=== PATIENT | female | born 1965 | race Caucasian/White ===

== ENCOUNTER → 2023-06-04 08:25 | Outpatient (CLI) | payer BC, SELFPAY ==
[2023-06-04 14:02] LABS: Microscopic, Urine URINE MICROSCOPIC (MICROSCOPIC)
[2023-06-04 14:12] LABS: Appearance,Urine CLEAR (Clear); Bilirubin,Urine Negative (Negative); Blood, Urine Negative (Negative); Color,Urine YELLOW (Yellow); Glucose,Urine (UA) Negative (Negative); Ketones,Urine Negative (Negative); Leukocyte Esterase,Urine Negative (Negative); Nitrate,Urine Negative (Negative); PH,Urine 5.5 (5.0-8.5); Protein,Urine Negative (Negative); Specific Gravity, Urine >= 1.030 (1.005-1.030); Urobilinogen,Urine 0.2 EU/dl (0.2)
[2023-06-04 14:28] LABS: Bacteria,Urine Trace /lpf; RBC,Urine Occasional #/hpf (0-3)
[2023-06-04 14:34] LABS: Hemoglobin A1C 5.5 % (4.0-6.0)
[2023-06-04 15:16] LABS: Alanine Aminotransferase 26 U/L (12-78); Albumin Level 4.5 g/dl (3.5-5.0); Albumin/Globulin Ratio 1.6 (1.1-1.8); Alkaline Phosphatase 45 U/L (38-126); Anion Gap 15.3 mEq/L (5-15); Aspartate Amino Transferase 39 U/L (14-36); Bilirubin,Total 0.3 mg/dl (0.2-1.3); Blood Urea Nitrogen 30 mg/dl (7-17); Calcium 9.8 mg/dl (8.4-10.2); Carbon Dioxide 26 mmol/L (22.0-30.0); Chloride 103 mmol/L (98-107); Chol/HDL Ratio 2.3 (1-3.5); Cholesterol 187 mg/dl (140-200); Estimated Glomerular Filt Rate 74 ml/min (>60); GFR (African American) 89 ML/MIN (>60); Globulin 2.9 g/dL (1.3-3.2); Glucose 78 mg/dl (74-100); HDL Cholesterol 80 mg/dl (40-60); Potassium 5.3 mmoL/L (3.5-5.1); Sodium 139 mmol/L (136-145); Total Protein,Serum 7.4 g/dl (6.3-8.2); Triglycerides 86 mg/dl (30-150); VLDL Cholesterol 17 mg/dL (0-40)
[2023-06-04 15:27] LABS: Direct LDL Cholesterol 82.53 mg/dL (100-129)
[2023-06-04 15:50] LABS: Thyroid Stimulating Hormone 2.45 uIU/mL (0.465-4.68)
== END ==
PROVIDERS: PCP Nurse Practitioner Family; Visit Provider Nurse Practitioner Family
DX: R82.90 Unspecified abnormal findings in urine (principal); R35.0 Frequency of micturition; E78.5 Hyperlipidemia, unspecified; I10 Essential (primary) hypertension
CPT/HCPCS: 80053; 80061; 81001; 83036; 84443; 87086

== ENCOUNTER → 2023-07-12 10:01 | Outpatient (CLI) | payer BC, SELFPAY | PROVIDERS: PCP Nurse Practitioner Family; Visit Provider Nurse Practitioner Family | DX: R30.0 Dysuria (principal); B96.29 Other Escherichia coli [E. coli] as the cause of diseases classified elsewhere | CPT/HCPCS: 87086 ==

== ENCOUNTER 2023-11-24 14:40 | Outpatient (CLI) | payer BC, SELFPAY ==
[2023-11-24 14:44] LABS: Chloride 103 mmol/L (98-107); Sodium 138 mmol/L (136-145)
[2023-11-24 14:46] LABS: Alanine Aminotransferase 25 U/L (12-78); Aspartate Amino Transferase 37 U/L (14-36); Blood Urea Nitrogen 32 mg/dl (7-17); Estimated Glomerular Filt Rate 57 ml/min (>60); GFR (African American) 69 ML/MIN (>60)
[2023-11-24 14:47] LABS: Albumin Level 4.3 g/dl (3.5-5.0); Albumin/Globulin Ratio 1.6 (1.1-1.8); Alkaline Phosphatase 47 U/L (38-126); Bilirubin,Total 0.5 mg/dl (0.2-1.3); Calcium 9.9 mg/dl (8.4-10.2); Carbon Dioxide 28 mmol/L (22.0-30.0); Globulin 2.7 g/dL (1.3-3.2); Glucose 72 mg/dl (74-100)
[2023-11-24 16:30] LABS: Hemoglobin A1C 5.7 % (4.0-6.0)
== END 2023-11-24 23:59 | disposition home or self-care (01) ==
LOC: LAB.DROPOF 14:40
PROVIDERS: PCP Nurse Practitioner Family; Visit Provider Nurse Practitioner Family
DX: R10.2 Pelvic and perineal pain (principal); I10 Essential (primary) hypertension; E78.5 Hyperlipidemia, unspecified; R82.90 Unspecified abnormal findings in urine; Z13.1 Encounter for screening for diabetes mellitus
CPT/HCPCS: 80053; 83036; 87086

== ENCOUNTER 2023-11-25 06:56 | Outpatient (CLI) | payer BC, SELFPAY ==
[2023-11-25 17:21] LABS: Chol/HDL Ratio 3.3 (1-3.5); Cholesterol 202 mg/dl (140-200); HDL Cholesterol 62 mg/dl (40-60); Triglycerides 117 mg/dl (30-150); VLDL Cholesterol 23 mg/dL (0-40)
[2023-11-25 17:32] LABS: Direct LDL Cholesterol 88.32 mg/dL (100-129)
== END 2023-11-25 23:59 ==
PROVIDERS: PCP Nurse Practitioner Family; Visit Provider Nurse Practitioner Family
DX: E78.5 Hyperlipidemia, unspecified (principal)
CPT/HCPCS: 80061

== ENCOUNTER 2024-05-24 14:10 | Outpatient (CLI) | payer BC, SELFPAY ==
[2024-05-24 13:05] LABS: Albumin Level 4.9 g/dl (3.5-5.0); Chloride 100 mmol/L (98-107)
[2024-05-24 13:06] LABS: Potassium 5.3 mmoL/L (3.5-5.1); Sodium 137 mmol/L (136-145)
[2024-05-24 13:08] LABS: Alanine Aminotransferase 28 U/L (12-78); Albumin/Globulin Ratio 1.8 (1.1-1.8); Anion Gap 15.3 mEq/L (5-15); Aspartate Amino Transferase 42 U/L (14-36); Blood Urea Nitrogen 31 mg/dl (7-17); Carbon Dioxide 27 mmol/L (22.0-30.0); Estimated Glomerular Filt Rate 51 ml/min (>60); GFR (African American) 62 ML/MIN (>60); Globulin 2.8 g/dL (1.3-3.2); Total Protein,Serum 7.7 g/dl (6.3-8.2)
[2024-05-24 13:09] LABS: Alkaline Phosphatase 41 U/L (38-126); Bilirubin,Total 0.5 mg/dl (0.2-1.3); Calcium 10.3 mg/dl (8.4-10.2); Chol/HDL Ratio 2.6 (1-3.5); Cholesterol 213 mg/dl (140-200); Glucose 84 mg/dl (74-100); HDL Cholesterol 81 mg/dl (40-60); Magnesium 2.2 mg/dl (1.6-2.3); Triglycerides 113 mg/dl (30-150); VLDL Cholesterol 23 mg/dL (0-40)
[2024-05-24 13:18] LABS: Hemoglobin A1C 5.5 % (4.0-6.0)
[2024-05-24 13:20] LABS: Direct LDL Cholesterol 82.03 mg/dL (100-129)
== END 2024-05-24 23:59 | disposition home or self-care (01) ==
LOC: LAB.DROPOF 14:10
PROVIDERS: PCP Nurse Practitioner Family; Visit Provider Nurse Practitioner Family
DX: E78.2 Mixed hyperlipidemia (principal); I10 Essential (primary) hypertension; Z13.1 Encounter for screening for diabetes mellitus
CPT/HCPCS: 80053; 80061; 83036; 83735; 84443

== ENCOUNTER 2024-12-11 14:43 | Outpatient (CLI) | payer BC, SELFPAY ==
[2024-12-11 13:07] LABS: Microscopic, Urine URINE MICROSCOPIC (MICROSCOPIC)
[2024-12-11 13:32] LABS: Appearance,Urine CLEAR (Clear); Bilirubin,Urine Negative (Negative); Blood, Urine Negative (Negative); Color,Urine YELLOW (Yellow); Glucose,Urine (UA) Negative (Negative); Ketones,Urine Negative (Negative); Leukocyte Esterase,Urine Negative (Negative); Nitrate,Urine Negative (Negative); PH,Urine 5.5 (5.0-8.5); Protein,Urine Negative (Negative); Specific Gravity, Urine 1.025 (1.005-1.030); Urobilinogen,Urine 0.2 EU/dl (0.2)
[2024-12-11 13:51] LABS: Creatinine,Urine Random 211 mg/dL (Not Estab.); Microalbumin/Creatinine Ratio 5.4
[2024-12-11 13:52] LABS: Albumin Level 4.4 g/dl (3.5-5.0); Chloride 105 mmol/L (98-107); Sodium 138 mmol/L (136-145)
[2024-12-11 13:53] LABS: Potassium 5.5 mmoL/L (3.5-5.1)
[2024-12-11 13:55] LABS: Alanine Aminotransferase 28 U/L (12-78); Albumin/Globulin Ratio 1.6 (1.1-1.8); Anion Gap 13.5 mEq/L (5-15); Aspartate Amino Transferase 38 U/L (14-36); Blood Urea Nitrogen 39 mg/dl (7-17); Carbon Dioxide 25 mmol/L (22.0-30.0); Estimated Glomerular Filt Rate 42 ml/min (>60); GFR (African American) 51 ML/MIN (>60); Globulin 2.8 g/dL (1.3-3.2); Total Protein,Serum 7.2 g/dl (6.3-8.2)
[2024-12-11 13:56] LABS: Alkaline Phosphatase 47 U/L (38-126); Bilirubin,Total 0.3 mg/dl (0.2-1.3); Calcium 9.7 mg/dl (8.4-10.2); Cholesterol 196 mg/dl (140-200); Glucose 83 mg/dl (74-100); HDL Cholesterol 66 mg/dl (40-60); Triglycerides 161 mg/dl (30-150); VLDL Cholesterol 32 mg/dL (0-40)
[2024-12-11 14:07] LABS: Direct LDL Cholesterol 87.83 mg/dL (100-129)
[2024-12-11 14:18] LABS: Bacteria,Urine Trace /lpf; Hyaline Casts,Urine OCC #/lpf (0)
[2024-12-11 14:19] LABS: Hemoglobin A1C 5.6 % (4.0-6.0)
[2024-12-11 14:26] LABS: Thyroid Stimulating Hormone 1.88 uIU/mL (0.465-4.68)
[2024-12-11 14:30] LABS: Ferritin 90.7 ng/ml (11.1-264)
[2024-12-11 14:34] LABS: HIV Combo NEGATIVE (Negative)
[2024-12-11 14:45] LABS: Hepatitis C Ab Qual. W/ RFX NEGATIVE (Negative)
== END 2024-12-11 23:59 | disposition home or self-care (01) ==
LOC: LAB.DROPOF 14:43
PROVIDERS: PCP Nurse Practitioner Family; Visit Provider Nurse Practitioner Family
DX: Z13.1 Encounter for screening for diabetes mellitus (principal); Z11.59 Encounter for screening for other viral diseases; I10 Essential (primary) hypertension; Z11.4 Encounter for screening for human immunodeficiency virus [HIV]; L81.9 Disorder of pigmentation, unspecified; E78.5 Hyperlipidemia, unspecified
CPT/HCPCS: 80053; 80061; 81001; 82043; 82570; 82728; 83036; 84443; 86803; 87389

== ENCOUNTER 2024-12-26 07:50 | Outpatient (CLI) | payer BC, SELFPAY ==
--- NOTE | 2024-12-26 08:00 | US_ITS ---
FINAL REPORT TECHNIQUE: ultrasound images of the kidneys were obtained. CLINICAL HISTORY: ELEVATED LAB WORK // HTN FINDINGS: Limited images of the liver parenchyma demonstrate normal echogenicity. The right kidney measures 9.4 centimeters in length. It is normal echogenicity. There is no hydronephrosis. The left kidney measures 9.3 centimeters in length. It is normal echogenicity. There is no hydronephrosis. IMPRESSION: Normal renal ultrasound. Reviewed, Interpreted and Dictated by Oscar Hanna MD Transcribed by Tiera Morales Authenticated and [facility]
== END 2024-12-26 23:59 | disposition home or self-care (01) ==
LOC: RAD 07:51
PROVIDERS: PCP Nurse Practitioner Family; Visit Provider Nurse Practitioner Family
DX: R94.4 Abnormal results of kidney function studies (principal)
CPT/HCPCS: 76770

== ENCOUNTER 2025-06-19 10:19 | Outpatient (CLI) | payer BC, SELFPAY ==
[2025-06-19 13:40] LABS: Hematocrit 36.2 % (37.0-47.0); Hemoglobin 11.1 g/dL (12.2-16.2); Immature Granulocytes % 0 %; Mean Corpuscular HGB Conc 30.7 g/dL (31.8-35.4); Mean Corpuscular Hemoglobin 29.2 pg (27.0-31.2); Mean Corpuscular Volume 95.3 fl (81-99); Nucleated Red Blood Cells % 0 %; Platelet Count 427 K/mm3 (142-424); Red Blood Count 3.80 M/mm3 (4.20-5.40); Red Cell Distribution Width-SD 44.4 fL; White Blood Count 5.7 K/mm3 (4.8-10.8)
[2025-06-19 14:08] LABS: Alanine Aminotransferase 27 U/L (12-78); Albumin Level 4.5 g/dl (3.5-5.0); Albumin/Globulin Ratio 1.5 (1.1-1.8); Alkaline Phosphatase 50 U/L (38-126); Anion Gap 9.9 mEq/L (5-15); Aspartate Amino Transferase 35 U/L (14-36); Bilirubin,Total 0.4 mg/dl (0.2-1.3); Blood Urea Nitrogen 24 mg/dl (7-17); Calcium 9.9 mg/dl (8.4-10.2); Carbon Dioxide 28 mmol/L (22.0-30.0); Chloride 103 mmol/L (98-107); Cholesterol 181 mg/dl (140-200); Creatinine,Serum 1.00 mg/dl (0.52-1.04); Estimated Glomerular Filt Rate 57 ml/min (>60); GFR (African American) 68 ML/MIN (>60); Globulin 3.1 g/dL (1.3-3.2); Glucose 84 mg/dl (74-100); HDL Cholesterol 70 mg/dl (40-60); Potassium 4.9 mmoL/L (3.5-5.1); Sodium 136 mmol/L (136-145); Total Protein,Serum 7.6 g/dl (6.3-8.2); Triglycerides 96 mg/dl (30-150)
[2025-06-19 14:37] LABS: Thyroid Stimulating Hormone 1.80 uIU/mL (0.465-4.68)
--- OUTSIDE RECORDS SUMMARY | 2025-06-20 20:57 | XMS_ITS | Encounter Summary ---
Author Organization [employer] ([place], [place], [place], [place], [place]) Address [address] [place] [address] Care Team Providers Care Type Copy Examiner Name Role Phone Unavailable Primary Care Provider Unavailabl e Encounter Details Date Type Department Care Team (Late st Contact Info) Description 05/19/2021 Transcribed Document [facility] [place] Family Medicine [facility] [place] [address] ProviderNeena MD [address] [place] [id number] Social History Tobacco Use Types Packs/Day Years Used Date Smoking Tobacco: Never Assessed Comments Unknown Sex and Gender Information Value Date Recorded Sex Assigned at Female 02/10/2022 12:54 PM CDT Legal Sex Female 12:54 PM CDT Gender Identity Female 02/10/2022 12:54 PM CDT Sexual Orientation Not on file documented as of this encounter Miscellaneous Notes * Cerner Conversion Note - Historical ProviderMD - 05/19/2021 6:10 PM CDT [facility] [address] [place] [id number] BETZY SHARMA :1965 Visit Time:05/19/2021 What to do next Follow-Up Appointments Follow Up with [facility] When Within 1 week Comments has appt praneeth ulloa np Where: [address] [place] [id number]- Medications What How Much When Instructions Next Dose acetaminophen-oxyCODONE (Percocet 5/ 325 oral tablet) 1 Tablet(s) Oral Three Times A Day as needed for for pain Pickup at [facility] #70025 diclofenac (Voltaren) 75 Milligram(s) Oral Two Times A Day fenofibrate (fenofibrate 145 mg oral tablet) 1 Tablet(s) Oral Every Day lisinopril (lisinopril 10 mg oral tablet) 1 Tablet(s) Oral Every Day oxybutynin (oxybutynin 5 mg oral tablet) 1 Tablet(s) Oral Three Times A Day simvastatin (simvastatin 40 mg oral tablet) 1 Tablet(s) Oral At Bedtime [id number] [address], [place] [phone] Take your medications faithfully. Do NOT skip medication. Do NOT stop taking medications without the direction of a physician. Carry a list of your medications with you at all times, and take this medication list with you to your first follow up visit. Report any side effects. Avoid herbal remedies unless discussed with your physician. As part of your treatment plan, your physician may have prescribed a limited course of a controlled substance. This medication may be given to help people with moderate or severe pain or for other medical conditions, but there are risks involved with treatment. Common side effects may include nausea, constipation, drowsiness, sweating, itching, dry mouth, and rash. More serious side effects may include cognitive and motor impairment, like problems with thinking, concentrating, alertness, and movement (e.g. slowed reflexes), and driving and operating heavy machinery can be dangerous. It is important for you to talk to your physician if you have these side effects or questions. These controlled substances can produce physical dependence and be habit-forming if taken for an extended period of time, which means that the body has gotten used to them and may experience withdrawal symptoms if they are abruptly stopped. Withdrawal symptoms can include runny nose, sweating, goose bumps, diarrhea, abdominal cramping, rapid heartbeat, difficulty sleeping, and nervousness. Please dispose of unused and medications per pharmacy guidance. Education Materials Myomectomy, Care After This sheet gives you information about how to care for yourself after your procedure. Your health care provider may also give you more specific instructions. If you have problems or questions, contact your health care provider. What can I expect after the procedure? After the procedure, it is common to have: ??? Pain in your abdomen, especially at the incision areas. You will be given pain medicine to control the pain. ??? Tiredness. This is a normal part of the recovery process. Your energy level will return to normal over the coming weeks. ??? Vaginal bleeding. This is normal and will stop in the coming weeks. ??? Constipation. Recovery time from this procedure will depend on the type of procedure you had and your general overall health prior to the procedure. Follow these instructions at home: Medicines ??? Take rjbq-mfl-jcfriwe and prescription medicines only as told by your health care provider. ??? Do not take aspirin because it can cause bleeding. ??? If you were prescribed an antibiotic medicine, use it as told by your health care provider. Do not stop using the antibiotic even if you start to feel better. ??? Do not drive or use heavy machinery while taking prescription pain medicine. ??? Do not drink alcohol while taking prescription pain medicine. Incision care ??? Follow instructions from your health care provider about how to take care of any incisions. Make sure you: ? Wash your hands with soap and water before you change your bandage (dressing). If soap and water are not available, use hand energy scheduler. ? Change your dressing as told by your health care provider. ? Leave stitches (sutures), skin glue, or adhesive strips in place. These skin closures may need to stay in place for 2 weeks or longer. If adhesive strip edges start to loosen and curl up, you may trim the loose edges. Do not remove adhesive strips completely unless your health care provider tells you to do that. ??? Check your incision areas every day for signs of infection. Check for: ? Redness, swelling, or pain. ? Fluid or blood. ? Warmth. ? Pus or a bad smell. ??? Do not take baths, swim, or use a hot tub until your health care provider approves. Take showers as directed by your health care provider. Activity ??? Return to your normal activities as told by your health care provider. Ask your health care provider what activities are safe for you. ??? Do not do activities that require a lot of effort until your health care provider says it is okay. ??? Do not lift anything that is heavier than 15 lb (6.8 kg) until your health care provider says that it is safe. ??? Do not douche, use tampons, or have sexual intercourse until your health care provider approves. ??? Walk daily but take frequent rest breaks if you tire easily. ??? Continue to practice deep breathing and coughing. If it hurts to cough, try holding a pillow against your belly as you cough. ??? Do not drive until your health care provider approves. General instructions ??? To prevent or treat constipation while you are taking prescription pain medicine, your health care provider may recommend that you: ? Drink enough fluid to keep your urine clear or pale yellow. ? Take kjok-ila-tgjhydm or prescription medicines. ? Eat foods that are high in fiber, such as fresh fruits and vegetables, whole grains, and beans. ? Limit foods that are high in fat and processed sugars, such as fried and sweet foods. ??? Take your temperature twice a day and write it down. If you develop a fever, this may be a sign that you have an infection. ??? Do not drink alcohol. ??? Have someone help you at home for 1 week or until you can do your own household activities. ??? Keep all follow-up visits as told by your health care provider. This is important. Contact a health care provider if: ??? You have a fever. ??? You have increasing abdominal pain that is not relieved with medicine. ??? You have nausea, vomiting, or diarrhea. ??? You have pain when you urinate or you have blood in your urine. ??? You have a rash on your body. ??? You have pain or redness where your IV access tube was inserted. ??? You have redness, swelling, or pain around an incision. ??? You have fluid or blood coming from an incision. ??? An incision feels warm to the touch. ??? You have pus or a bad smell coming from an incision. Get help right away if: ??? You have weakness or light-headedness. ??? You have pain, swelling, or redness in your legs. ??? You have chest pain. ??? You faint. ??? You have shortness of breath. ??? You have heavy vaginal bleeding. ??? You have an incision that is opening up. Summary ??? Recovery time from this procedure will depend on the type of procedure you had and your general overall health prior to the procedure. ??? If you were prescribed an antibiotic medicine, use it as told by your health care provider. Do not stop using the antibiotic even if you start to feel better. ??? Do not douche, use tampons, or have sexual intercourse until your health care provider approves. ??? Return to your normal activities as told by your health care provider. Ask your health care provider what activities are safe for you. This information is not intended to replace advice given to you by your health care provider. Make sure you discuss any questions you have with your health care provider. Document Revised: 07/15/2018 Document Reviewed: 09/02/2017 [employer] Patient Education ?? 2020 [employer] Hysteroscopy, Care After This sheet gives you information about how to care for yourself after your procedure. Your health care provider may also give you more specific instructions. If you have problems or questions, contact your health care provider. What can I expect after the procedure? After the procedure, it is common to have: ??? Cramping. ??? Bleeding. This can vary from light spotting to menstrual-like bleeding. Follow these instructions at home: Activity ??? Rest for 1???2 days after the procedure. ??? Do not douche, use tampons, or have sex for 2 weeks after the procedure, or until your health care provider approves. ??? Do not drive for 24 hours after the procedure, or for as long as told by your health care provider. ??? Do not drive, use heavy machinery, or drink alcohol while taking prescription pain medicines. Medicines ??? Take bzeb-fat-toyqiql and prescription medicines only as told by your health care provider. ??? Do not take aspirin during recovery. It can increase the risk of bleeding. General instructions ??? Do not take baths, swim, or use a hot tub until your health care provider approves. Take showers instead of baths for 2 weeks, or for as long as told by your health care provider. ??? To prevent or treat constipation while you are taking prescription pain medicine, your health care provider may recommend that you: ? Drink enough fluid to keep your urine clear or pale yellow. ? Take znvj-enl-ikdghsz or prescription medicines. ? Eat foods that are high in fiber, such as fresh fruits and vegetables, whole grains, and beans. ? Limit foods that are high in fat and processed sugars, such as fried and sweet foods. ??? Keep all follow-up visits as told by your health care provider. This is important. Contact a health care provider if: ??? You feel dizzy or lightheaded. ??? You feel nauseous. ??? You have abnormal vaginal discharge. ??? You have a rash. ??? You have pain that does not get better with medicine. ??? You have chills. Get help right away if: ??? You have bleeding that is heavier than a normal menstrual period. ??? You have a fever. ??? You have pain or cramps that get worse. ??? You develop new abdominal pain. ??? You faint. ??? You have pain in your shoulders. ??? You have shortness of breath. Summary ??? After the procedure, you may have cramping and some vaginal bleeding. ??? Do not douche, use tampons, or have sex for 2 weeks after the procedure, or until your health care provider approves. ??? Do not take baths, swim, or use a hot tub until your health care provider approves. Take showers instead of baths for 2 weeks, or for as long as told by your health care provider. ??? Report any unusual symptoms to your health care provider. ??? Keep all follow-up visits as told by your health care provider. This is important. This information is not intended to replace advice given to you by your health care provider. Make sure you discuss any questions you have with your health care provider. Document Revised: 07/15/2018 Document Reviewed: 2017 [employer] Patient Education ?? 202 [employer] General Anesthesia, Adult, Care After This sheet gives you information about how to care for yourself after your procedure. Your health care provider may also give you more specific instructions. If you have problems or questions, contact your health care provider. What can I expect after the procedure? After the procedure, the following side effects are common: ??? Pain or discomfort at the IV site. ??? Nausea. ??? Vomiting. ??? Sore throat. ??? Trouble concentrating. ??? Feeling cold or chills. ??? Weak or tired. ??? Sleepiness and fatigue. ??? Soreness and body aches. These side effects can affect parts of the body that were not involved in surgery. Follow these instructions at home: For at least 24 hours after the procedure: ??? Have a responsible adult stay with you. It is important to have someone help care for you until you are awake and alert. ??? Rest as needed. ??? Do not: ? Participate in activities in which you could fall or become injured. ? Drive. ? Use heavy machinery. ? Drink alcohol. ? Take sleeping pills or medicines that cause drowsiness. ? Make important decisions or sign legal documents. ? Take care of children on your own. Eating and drinking ??? Follow any instructions from your health care provider about eating or drinking restrictions. ??? When you feel hungry, start by eating small amounts of foods that are soft and easy to digest (bland), such as toast. Gradually return to your regular diet. ??? Drink enough fluid to keep your urine pale yellow. ??? If you vomit, rehydrate by drinking water, juice, or clear broth. General instructions ??? If you have sleep apnea, surgery and certain medicines can increase your risk for breathing problems. Follow instructions from your health care provider about wearing your sleep device: ? Anytime you are sleeping, including during daytime naps. ? While taking prescription pain medicines, sleeping medicines, or medicines that make you drowsy. ??? Return to your normal activities as told by your health care provider. Ask your health care provider what activities are safe for you. ??? Take smdo-ylp-jfbluin and prescription medicines only as told by your health care provider. ??? If you smoke, do not smoke without supervision. ??? Keep all follow-up visits as told by your health care provider. This is important. Contact a health care provider if: ??? You have nausea or vomiting that does not get better with medicine. ??? You cannot eat or drink without vomiting. ??? You have pain that does not get better with medicine. ??? You are unable to pass urine. ??? You develop a skin rash. ??? You have a fever. ??? You have redness around your IV site that gets worse. Get help right away if: ??? You have difficulty breathing. ??? You have chest pain. ??? You have blood in your urine or stool, or you vomit blood. Summary ??? After the procedure, it is common to have a sore throat or nausea. It is also common to feel tired. ??? Have a responsible adult stay with you for the first 24 hours after general anesthesia. It is important to have someone help care for you until you are awake and alert. ??? When you feel hungry, start by eating small amounts of foods that are soft and easy to digest (bland), such as toast. Gradually return to your regular diet. ??? Drink enough fluid to keep your urine pale yellow. ??? Return to your normal activities as told by your health care provider. Ask your health care provider what activities are safe for you. This information is not intended to replace advice given to you by your health care provider. Make sure you discuss any questions you have with your health care provider. Document Revised: 08/05/2018 Document Reviewed: 03/18/2018 [employer] Patient Education ?? 2020 [employer]. Emergency Awareness and Preventative Care STROKE is an EMERGENCY Every Minute Counts Act FAST and Check for these signs: FACE Does the face look uneven? ARM Does one arm drift down? SPEECH Does their speech sound strange? TIME Call at any sign of stroke Stroke Risk Factors Atrial Fibrillation (irregular heartbeat) Diabetes Family history of stroke Heart Disease Heavy alcohol use High Blood Pressure High Cholesterol Physical inactivity and obesity Smoking Cigarette Smoking The facts are clear, cigarette smoking will shorten your life. Smoking can cause many illnesses along the way. As a healthcare provider, we recommend that you stop smoking. Assistance with quitting is available by contacting 9-343-DASG-NOW. This is a free resource providing counseling, support, and referral. Or you may contact your personal physician. National Suicide Prevention Lifeline: The National Suicide Prevention Lifeline is a national network of local crisis centers that provides free and confidential emotional support to people in suicidal crisis or emotional distress 24 hours a day, 7 days a week. Don't Wait! Stop a Heart Attack Before it Starts What is a heart attack? A heart attack is damage or to a part of the heart from severely decreased or lack of blood flow to the heart. Over time, arteries can become narrow from the buildup of fat and cholesterol, which is called plaque. The plaque can rupture causing a blood clot to form. When the blood clot forms, the artery can become severely narrowed or completely blocked, causing a heart attack. Heart attack is the leading cause of in the [place]. 85% of muscle damage occurs within the first 2 hours. Delay in the recognition of heart attack symptoms increases the chances of . Know the early symptoms of a heart attack: Nausea Feeling of fullness in chest Jaw Pain Pain that travels down one or both arms Fatigue/being tired Anxiety Back Pain Chest pressure, squeezing, or discomfort Shortness of breath Sweating, or a cold sweat Feeling of impending doom There are unusual signs of a heart attack, too! Women, the elderly, and diabetics may present with atypical symptoms: Fainting/dizziness Weakness Confusion Risk Factors for a Heart Attack Some heart disease risk factors, such as age and family history, cannot be changed. Others, like smoking and lack of exercise, can be changed. Smoking High Cholesterol High Blood Pressure Family History Obesity Age Gender (Males are at higher risk) Lack of Exercise Diabetes Diet Stress Excessive Alcohol Intake If you or someone you know is experiencing the signs and symptoms of a heart attack, DON???T DELAY. Call immediately and seek help. If someone collapses, perform CPR! Do not attempt to drive if you are having symptoms of heart attack. Hands-Only CPR Why Hands-Only CPR? Hands-Only CPR has been shown to be as effective as conventional CPR for cardiac arrests that occur outside of a hospital. Survival depends on immediately receiving CPR from someone nearby. How do you perform Hands-Only CPR? There are two easy steps: Call if you see a teen or adult collapse Push hard and fast in the center of the chest at a beat of 100 beats per minute. Save a life! 4 WAYS TO GET AHEAD OF SEPSIS SEPSIS is a MEDICAL EMERGENCY. Time matters! Infections put you and your family at risk for a life-threatening condition called sepsis. Sepsis is the body's extreme response to an infection. It is life-threatening, and without timely treatment, sepsis can rapidly lead to tissue damage, organ failure, and . Sepsis happens when an infection you already have-in your skin, lungs, urinary tract or somewhere else-triggers a chain reaction throughout your body. 1 PREVENT INFECTIONS Take good care of chronic conditions. Talk to your doctor about getting the recommended vaccines. 2 PRACTICE GOOD HYGIENE Wash your hands frequently. Keep cuts or open sores clean and covered until they are healed. 3 KNOW THE SYMPTOMS Confusion or disorientation Shortness of breath High heart rate Fever, shivering, or feeling very cold Extreme pain or discomfort Clammy or sweaty skin 4 ACT FAST Get medical care IMMEDIATELY if you suspect sepsis or if you have an infection that is not getting better or is getting worse. To learn more about sepsis and how to prevent infections, visit www.cdc.gov/sepsis. Test Results Laboratory or Other Results This Visit (last charted value for your 05/19/2021 visit) Microbiology 05/15/2021 9:30 AM SARS-CoV-2 (COVID19 PCR): Negative Patient Name:BETZY SHARMA EUSEBIO I have received this information and was given the opportunity to ask questions. Patient/Operations Expert Name: Patient/Operations Expert Signature: Relationship to Patient: Clinician/Hospital Operations Expert Signature: Date: Electronically signed by [facility] Conversion [employer] Tender Cerner at 11/30/2022 8:31 AM CDT documented in this encounter Plan of Treatment Not on file documented as of this encounter Visit Diagnoses Not on filedocumented in this encounter
--- OUTSIDE RECORDS SUMMARY | 2025-06-20 20:57 | XMS_ITS | Encounter Summary ---
Author Organization [employer] ([place], [place], [place], [place], [place]) Address [address] [place] [address] Care Team Providers Care Investment Advisor Name Role Phone Unavailable Primary Care Provider Unavailabl e Encounter Details Date Type Department Care Team (Late st Contact Info) Description 05/19/2021 Transcribed Document [facility] [place] [facility] [place] [address] ProviderNeena MD [address] [place] [phone] Social History Tobacco Use Types Packs/Day Years Used Date Smoking Tobacco: Never Assessed Comments Unknown Sex and Gender Information Value Date Recorded Sex Assigned at Female 02/10/2022 12:54 PM CDT Legal Sex Female 12:54 PM CDT Gender Identity Female 02/10/2022 12:54 PM CDT Sexual Orientation Not on file documented as of this encounter Miscellaneous Notes * Cerner Conversion Note - Neena ProviderMD - 05/19/2021 6:02 PM CDT Patient Education Materials Follows:and Gynecology Myomectomy, Care After This sheet gives you [...] these instructions at home: Medicines ??? Take nryh-ywe-goasmhq and prescription medicines only as told by [...] and water are not available, use hand life cycle assessment analyst. ? Change your dressing as told by [...] urine clear or pale yellow. ? Take lzvt-ntw-leklnzs or prescription medicines. ? Eat foods that [...] provider. Document Revised: 07/15/2018 Document Reviewed: 09/02/2017 [employer] Patient Education ? 2020 [employer] Hysteroscopy, Care After This sheet gives [...] instructions at home: Activity ??? Rest for 1?2 days after the procedure. ??? Do not [...] taking prescription pain medicines. Medicines ??? Take lbft-xly-miwdlfe and prescription medicines only as told by [...] urine clear or pale yellow. ? Take oycy-pbw-jorxibz or prescription medicines. ? Eat foods that [...] provider. Document Revised: 07/15/2018 Document Reviewed: 2017 [employer] Patient Education ? 2020 [employer] Pharmacology General Anesthesia, Adult, Care After This sheet [...] activities are safe for you. ??? Take qvmd-zgl-ihcgcbe and prescription medicines only as told by [...] provider. Document Revised: 08/05/2018 Document Reviewed: 03/18/2018 [employer] Patient Education ? 2020 [employer] documented in this encounter Plan of Treatment Not on file documented as of this encounter Visit Diagnoses Not on filedocumented in this encounter
--- OUTSIDE RECORDS SUMMARY | 2025-06-20 20:57 | XMS_ITS | Encounter Summary ---
Author Organization [employer] ([place], [place], [place], [place], [place]) Address [address] [place] [address] Care Team Providers Care Wood Pile Driver Operator Name Role Phone Unavailable Primary Care Provider Unavailabl e Encounter Details Date Type Department Care Team (Late st Contact Info) Description 05/19/2021 Transcribed Document [facility] [place] Family Medicine [facility] [place] [address] ProviderNeena MD [address] [place] [address] Social History Tobacco Use Types Packs/Day [...] Conversion Note - Historical ProviderMD - 05/19/2021 6:27 PM CDT [facility] [address] [place] [address] BETZY SHARMA :1965 Visit Time:05/19/2021 What to do next Instructions From Your Care Team Rest and relax today. No driving for 24 hours due to anesthesia. Resume regular diet as tolerated. Full vaginal rest until your follow up. No tampons, no douching, nothing in vagina. May shower, but no soaking in tub, swimming pool, hot tub, etc. Follow-Up Appointments Follow Up with DAPHNE BEACH When Within 1 week Comments has appt praneeth ulloa psych np Where: [address] [place] [address]- Medications What How Much When Instructions Next Dose acetaminophen-oxyCODONE (Percocet 5/ 325 oral tablet) 1 Tablet(s) Oral Three Times A Day as needed for for pain Pickup at [id number] diclofenac (Voltaren) 75 Milligram(s) Oral Two Times A Day fenofibrate (fenofibrate 145 mg oral tablet) 1 Tablet(s) Oral Every Day lisinopril (lisinopril 10 mg oral tablet) 1 Tablet(s) Oral Every Day oxybutynin (oxybutynin 5 mg oral tablet) 1 Tablet(s) Oral Three Times A Day simvastatin (simvastatin 40 mg oral tablet) 1 Tablet(s) Oral At Bedtime Pharmacy Information [facility] #[id number]: [address], [place] [phone] Take your medications faithfully. Do NOT skip [...] these instructions at home: Medicines ??? Take crqr-rwp-idtgeyv and prescription medicines only as told by [...] and water are not available, use hand aviation manager. ? Change your dressing as told by [...] urine clear or pale yellow. ? Take inpm-xjj-jkyjjey or prescription medicines. ? Eat foods that [...] provider. Document Revised: 07/15/2018 Document Reviewed: 09/02/2017 [employer] Patient Education ?? 2020 [employer]. Hysteroscopy, Care After This sheet gives you [...] taking prescription pain medicines. Medicines ??? Take ukkb-wbr-jpkqfgs and prescription medicines only as told by [...] urine clear or pale yellow. ? Take vnzu-fag-jxlqwja or prescription medicines. ? Eat foods that [...] provider. Document Revised: 07/15/2018 Document Reviewed: 2017 [employer] Patient Education ?? 202 Elsevier Inc. General [...] activities are safe for you. ??? Take omna-hvx-yozoyoc and prescription medicines only as told by [...] provider. Document Revised: 08/05/2018 Document Reviewed: 03/18/2018 [employer] Patient Education ?? 2020 [employer] Inc. Emergency Awareness and Preventative Care STROKE is [...] Assistance with quitting is available by contacting 5-511-SSWX-NOW. This is a free resource providing counseling, [...] was given the opportunity to ask questions. Patient/Piece Dyeing Machine Tender Name: Patient/Piece Dyeing Machine Tender Signature: Relationship to Patient: Clinician/Hospital Piece Dyeing Machine Tender Signature: Date: Electronically signed by Interface, [facility] Conversion Bag Machine Adjuster Cerner at 11/30/2022 8:47 AM CDT documented in this encounter Plan of Treatment Not on file documented as of this encounter Visit Diagnoses Not on filedocumented in this encounter
--- OUTSIDE RECORDS SUMMARY | 2025-06-20 20:57 | XMS_ITS | Encounter Summary ---
Author Organization [employer] ([place], [place], [place], [place], [place]) Address [address] [place] [address] Care Team Providers Care Dialysis Tech Name Role Phone Unavailable Primary Care Provider Unavailabl e Encounter Details Date Type Department Care Team (Late st Contact Info) Description 05/19/2021 Transcribed Document [facility] [place] Family Medicine [address] [place] [address] ProviderNeena MD [address] [place], [place] [phone] Social History Tobacco Use Types Packs/Day Years [...] Conversion Note - Neena ProviderMD - 05/19/2021 5:19 PM CDT [facility] IntraOp Summary Primary Physician: DAPHNE BEACH MD-OBG Finalized Date/Time: 05/20/21 10:42:35 Pt. Name: BETZY SHARMA /Sex: 1965 Female Med Rec #: [id number] Physician: DAPHNE BEACH MD-OBG Financial #: [id number] Pt. Type: O Room/Bed: Admit/Disch: 05/19/21 13:15:00 - 05/19/21 18:30:00 Institution: [facility] IntraOp Case Attendance Entry 1 Entry 2 Entry 3 Case Attendee DAPHNE BEACH MD-OBG SHEREE FINLEY, DAJA PEDERSON, SPECIALTY CARE STAFF Role Performed Surgeon/Proceduralist, SUPERVISOR FLESHING/Nurse Drawstring Knotter Staff - Other First Time In 05/19/21 16:58:00 05/19/21 16:58:00 05/19/21 16:58:00 Time Out 05/19/21 17:33:00 05/19/21 17:33:00 05/19/21 17:33:00 Procedure Myomectomy Myomectomy Myomectomy Hysteroscopic, Uterine Hysteroscopic, Uterine Hysteroscopic, Uterine Dilatation Curettage Dilatation Curettage Dilatation Curettage Other Attendee Superficial Wound Closed By: Last Modified By: Jeremy Natarajan Shaffer, Andrea L, Jeremy Natarajan, Rn-Traveler 05/19/21 Rn-Traveler 05/19/21 Rn-Traveler 05/19/21 17:37:19 17:37:19 17:37:19 Entry 4 Entry 5 Case Attendee Brenda Sandoval Shaffer, Andrea L, Client Support Consultant Rn-Traveler Role Performed Scrub, First Glaze Wiper, First Time In 05/19/21 16:58:00 05/19/21 16:58:00 Time Out 05/19/21 17:33:00 05/19/21 17:33:00 Procedure Myomectomy Myomectomy Hysteroscopic, Uterine Hysteroscopic, Uterine Dilatation Curettage Dilatation Curettage Other Attendee Superficial Wound Closed By: Last Modified By: Jeremy Natarajan Shaffer, Andrea L, Rn-Traveler 05/19/21 Rn-Traveler 05/19/21 17:37:19 17:37:19 [facility] IntraOp Case Attendance Audit 05/19/21 17:37:19 Insurance Claims Supervisor: [id number] Modifier: [id number] 1 <+> Time Out 1 <*> Procedure Myomectomy Hysteroscopic, Uterine Dilatation Curettage 2 <+> Time Out 2 <*> Procedure Myomectomy Hysteroscopic, Uterine Dilatation Curettage 3 <+> Time Out 3 <*> Procedure Myomectomy Hysteroscopic, Uterine Dilatation Curettage 4 <+> Time Out 4 <*> Procedure Myomectomy Hysteroscopic, Uterine Dilatation Curettage 5 <+> Time Out 5 <*> Procedure Myomectomy Hysteroscopic, Uterine Dilatation Curettage 05/19/21 17:23:54 Insurance Claims Supervisor: [id number] Modifier: [id number] 1 <+> Time In 1 <*> Procedure Myomectomy Hysteroscopic 2 <+> Time In 2 <*> Procedure Myomectomy Hysteroscopic 3 <+> Time In 3 <*> Procedure Myomectomy Hysteroscopic 4 <+> Time In 4 <*> Procedure Myomectomy Hysteroscopic 5 <+> Time In 5 <*> Procedure Myomectomy Hysteroscopic 05/19/21 17:13:50 Insurance Claims Supervisor: [id number] Modifier: [id number] 1 <*> Procedure Myomectomy Hysteroscopic <+> 2 Case Attendee <+> 2 Role Performed <+> 2 Procedure <+> 3 Case Attendee <+> 3 Role Performed <+> 3 Procedure <+> 4 Case Attendee <+> 4 Role Performed <+> 4 Procedure <+> 5 Case Attendee <+> 5 Role Performed <+> 5 Procedure [facility] IntraOp Case Times Entry 1 Patient In Room Time 05/19/21 16:58:00 Out Room Time 05/19/21 17:33:00 Anesthesia Start Time 05/19/21 16:58:00 Stop Time 05/19/21 17:33:00 Anesthesia Ready 05/19/21 16:58:00 Surgery / Procedure Times Start Time 05/19/21 17:19:00 Stop Time 05/19/21 17:26:00 Last Modified By: Jeremy Natarajan Rn-Traveler 05/19/21 17:33:45 [facility] IntraOp Case Times Audit 05/19/21 17:33:45 Insurance Claims Supervisor: [id number] Modifier: [id number] <+> 1 Out Room Time <+> 1 Stop Time 05/19/21 17:26:29 Insurance Claims Supervisor: [id number] Modifier: [id number] <+> 1 Stop Time [facility] IntraOp Communication Entry 1 Communication To Family/Significant other Communication By DAPHNE BEACH MD-OBG Last Modified By: Jeremy Natarajan Rn-Traveler 05/19/21 17:13:57 [facility] IntraOp Counts Verification Entry 1 Procedure Myomectomy Hysteroscopic, Uterine Dilatation Curettage Count Info Count Type Sponge Counts Verification Baseline/pre-procedure Sequence Count Results Not Applicable Counts Performed By Count Performed By Brenda Sandoval (Scrub) Client Support Consultant Count Performed By Jeremy Natarajan (RN) Rn-Traveler Last Modified By: Jeremy Natarajan Rn-Traveler 05/19/21 17:23:56 [facility] IntraOp Counts Verification Audit 05/19/21 17:23:56 Insurance Claims Supervisor: [id number] Modifier: [id number] 1 <*> Procedure Myomectomy Hysteroscopic [facility] IntraOp Counts Final Entry 1 Procedure Myomectomy Hysteroscopic, Uterine Dilatation Curettage Final Count Info Count Type Sponge Counts Verification Skin Closure/end of Sequence procedure Count Results Correct, surgeon notified Counts Performed By Count Performed By Brenda Sandoval (Scrub) Client Support Consultant Count Performed By Jeremy Natarajan (RN) Rn-Traveler Last Modified By: Jeremy Natarajan Rn-Traveler 05/19/21 17:23:56 [facility] IntraOp Counts Final Audit 05/19/21 17:23:56 Insurance Claims Supervisor: [id number] Modifier: [id number] 1 <*> Procedure Myomectomy Hysteroscopic [facility] IntraOp Cultures and Spec Summary Entry 1 Cultrures and Specimens Specimen Ordered: Yes Test(s) Routine/Path-Lab Requested/Final Disposition Last Modified By: Jeremy Natarajan Rn-Traveler 05/19/21 17:24:01 [facility] IntraOp Departure from OR Entry 1 Integumentary Assessment Integumentary WDL Assessment WDL Transfer/Handoff Transfer to PACU Phase I Handoff Method Bedside/Face to face Post-op Transport Stretcher/Gurney Via Patient Transport Jeremy Natarajan, Accompanied by Rn-TravelerTUSHAR KELLY, CRNA Last Modified By: Jeremy Natarajan Rn-Traveler 05/19/21 17:24:22 [facility] IntraOp Fire Risk Assessment Entry 1 Fire Info Surgical Site or 0- No Incision Above the Xyphoid Open O2 Source 0- No (Mask or Cannula) Available Ignition 1- Yes (ESU, Laser, Light Source) Fire Risk 1 Assessment Score Fire Score Fire Risk Yes Assessment Complete Fire Risk Jeremy Natarajan, Assessment Verified Rn-Traveler By Fire Risk 05/19/21 17:17:00 Assessment Verified Date/Time Fire Risk Last Modified By: Jeremy Natarajan Rn-Traveler 05/19/21 17:17:45 [facility] IntraOp General Case Appraiser Boats And Marine 1 Case Information OR OR 06 [facility] Case Level 1 Room Verified Yes Wound Class II - Clean-Contaminated Specialty Gynecology Anesthesia Type General ASA Class 2 Diagnosis Preop Diagnosis post menopausal bleeding Postop Same As Preop No Postop Diagnosis see surgeon's operative notes Last Modified By: Jeremy Natarajan Rn-Traveler 05/19/21 17:24:55 [facility] IntraOp Intraoperative Assessment Entry 1 Handoff Method Bedside/Face to face Valid History / Yes Physical in Chart Preoperative Yes Checklist Reviewed/Evaluated Allergies Reviewed Yes Patient is Latex No Sensitive Isolation Not applicable Precautions Noted Level of WDL Consciousness (WDL = Alert, Oriented to Person, Place, and Time) Skin Assessment Yes Verified Present Upon IVs Arrival to OR Last Modified By: Jeremy Natarajan Rn-Traveler 05/19/21 17:25:03 [facility] IntraOp Intraoperative Equipment Entry 1 Type Monitoring Equipment Intraop Monitoring Electrocardiogram Three lead placement (ECG) Electrode Placement Blood Pressure Non-Invasive BP Device Source Antiembolic Devices Antiembolic Devices Sequential compression device, knee high Antiembolic Device Bilateral Location Scopes Photo/Video Documentation Photo No Video No Last Modified By: Jeremy Natarajan Rn-Traveler 05/19/21 17:25:08 [facility] IntraOp Patient Positioning Entry 1 Procedure Myomectomy Hysteroscopic, Uterine Dilatation Curettage Body Position Lithotomy Left Arm Position Secured on padded arm board Right Arm Position Secured on padded arm board Left Leg Position Secured in stirrup Right Leg Position Secured in stirrup Feet Uncrossed Yes Pressure Points Yes Checked Positioning Devices Arm Board, Stirrups/Leg Adan, Sling, Safety Strap, Arm(s), Safety Strap, Chest Positioned By SHEREE FINLEY CRNA, Jeremy Natarajan Rn-BAYLEE Irene SHARON, MD-OBG Position Verified Last Modified By: Jeremy Natarajan Rn-Traveler 05/19/21 17:25:34 [facility] IntraOp Sign In Entry 1 Patient, Site, Yes Procedure Identified Surgical Consent Yes Confirmed Relevant Surgical Yes Documents Available Surgical Site N/A Marked by person performing procedure Anesthesia Machine Yes Check Completed Medication Checks Yes Completed Allergies Yes Airway Difficult No Airway/Aspiration Risk Difficult Yes Airway/Aspiration Intervention Equipment Available Blood Loss Risk No Blood Loss No Intervention Equipment Prepared and Ready Blood Identifiers Not applicable Verified Per Policy Hypothermia Risk Yes Warming Measures Yes Taken Last Modified By: Jeremy Natarajan Rn-Traveler 05/19/21 17:25:41 [facility] Intra Op Sign Out Entry 1 RN Confirmation Surgical Yes Procedure(s) Identified Instrument, Sponge Yes and Sharps Counts Correct/Documented Equipment Problems N/A Documented Specimen Labeled Yes Correctly Urinary Catheter N/A Documented in IView Champagne Patient Yes Recovery Concerns Reviewed with Anesthesia Provider, Surgeon and RN Champagne Patient Yes Management Concerns Reviewed with Anesthesia Provider, Surgeon and RN Safety Checklist Yes Elements Complete? RN Sign Out Jeremy Natarajan, Signature Rn-Traveler RN Sign Out 05/19/21 17:33:00 Signature Date/Time Plan of Care Outcome - Fire Risk OUTCOME STATEMENT: Goal met Patient is free from injury related to surgical fire Plan of Care Outcome - Pt Positioning OUTCOME STATEMENT: Goal met Absence of signs and symptoms of positioning injury. Plan of Care Outcome - Skin Prep OUTCOME STATEMENT: Goal met Intraoperative care is consistent with measures to prevent infection Plan of Care Outcome - Xray/Images OUTCOME STATEMENT: Goal met Absence of observable signs or symptoms of radiation injury Plan of Care Outcome - Counts OUTCOME STATEMENT: Goal met Absence of signs and symptoms of injury related to extraneous objects Last Modified By: Jeremy Natarajan Rn-Traveler 05/19/21 17:33:49 [facility] Intra Op Sign Out Audit 05/19/21 17:33:49 Insurance Claims Supervisor: [id number] Modifier: [id number] <+> 1 RN Sign Out Signature Date/Time [facility] IntraOp Skin Prep Entry 1 Procedure Myomectomy Hysteroscopic, Uterine Dilatation Curettage Prescribed Yes Pre-Surgical Prep Completed Prep Area vagina and perineal area Intraop Prep Integumentary WDL Assessment WDL Prep Agents Betadine solution Prep by Jeremy Natarajan Rn-Traveler Hair Removal Methods No hair removal performed Last Modified By: Jeremy Natarajan Rn-Traveler 05/19/21 17:26:07 [facility] IntraOp Surgical Procedures Entry 1 Entry 2 Procedure Myomectomy Hysteroscopic Uterine Dilatation Curettage Modifiers Additional HYSTEROSCOPY D AND C Procedure MYOSURE Description Primary Procedure Yes No Primary Surgeon DAPHNE BEACH MD-OBG DAPHNE BEACH MD-OBG Start 05/19/21 17:19:00 05/19/21 17:19:00 Stop 05/19/21 17:26:00 05/19/21 17:26:00 Physician States Cecum Reached Anesthesia Type General General Specialty Gynecology Gynecology Wound Class II - Clean-Contaminated II - Clean-Contaminated Last Modified By: Jeremy Natarajan Shaffer, Andrea L Rn-Traveler 05/19/21 Rn-Traveler 05/19/21 17:26:49 17:26:49 [facility] IntraOp Surgical Procedures Audit 05/19/21 17:26:49 Insurance Claims Supervisor: [id number] Modifier: [id number] 1 <*> Procedure Myomectomy Hysteroscopic 1 <+> Stop <+> 2 Stop 05/19/21 17:26:26 Insurance Claims Supervisor: [id number] Modifier: [id number] 1 <*> Procedure Myomectomy Hysteroscopic <+> 2 Start [facility] IntraOp Time Out Entry 1 Procedure to be Myomectomy Performed Hysteroscopic, Uterine Dilatation Curettage Time Out Time Out Pause Time 05/19/21 17:17:00 All activity Yes suspended (unless life threatening emergency) Team Verbally Correct patient Confirms Information identity, Consent form is present and accurate, Agreement on the procedure to be done, Correct patient position, Relevant images/results properly labeled/appropriately displayed, Confirm antibiotics have been administered, Confirm the skin prep has dried, Confirm prosthesis/implant/devic e is present, Performed in location of procedure after prepped/draped Antibiotic Yes Prophylaxis Administered Or In Progress Within the Last 60 Minutes Beta Surya N/A Administered Venous Yes Thromboembolism Prophylaxis Required Anticipated Critical Events Surgeon None expected Anesthesia Provider None expected Essential Imaging Yes Labeled and Displayed Last Modified By: Jeremy Natarajan Rn-Traveler 05/19/21 17:26:22 [facility] IntraOp Time Out Audit 05/19/21 17:26:22 Insurance Claims Supervisor: [id number] Modifier: [id number] 1 <+> Beta Surya Administered 1 <+> Venous Thromboembolism Prophylaxis Required 1 <+> Antibiotic Prophylaxis Administered Or In Progress Within the Last 60 Minutes 1 <+> Surgeon 1 <+> Anesthesia Provider 1 <+> Essential Imaging Labeled and Displayed 1 <*> Procedure to be Performed Myomectomy Hysteroscopic, Uterine Dilatation Curettage 05/19/21 17:23:56 Insurance Claims Supervisor: [id number] Modifier: [id number] 1 <*> Procedure to be Performed Myomectomy Hysteroscopic Case Comments <None> Finalized By: Jeremy Natarajan Rn-Traveler Document Signatures Signed By: Jeremy Natarajan Rn-Traveler 05/19/21 17:40 Jeremy Natarajan Rn-Traveler 05/20/21 10:42 Unfinalized History Date/Time Username Reason for Unfinalizing Freetext Reason for Unfinalizing 05/20/21 10:42 [id number] Modify Pick List documented in this encounter Plan of Treatment Not on file documented as of this encounter Visit Diagnoses Not on filedocumented in this encounter
--- OUTSIDE RECORDS SUMMARY | 2025-06-20 20:57 | XMS_ITS | Encounter Summary ---
Author Organization [employer] ([place], [place], [place], [place], [place]) Address [address] [place] [address] Care Team Providers Care General Ledger Bookkeeper Name Role Phone Unavailable Primary Care Provider Unavailabl e Encounter Details Date Type Department Care Team (Late st Contact Info) Description 05/19/2021 Transcribed Document [facility] [place] Family Medicine [facility] [place] [address] ProviderNeena MD [address] [place] [phone] Social History Tobacco Use Types Packs/Day Years [...] Conversion Note - Historical ProviderMD - 05/19/2021 5:44 PM CDT Patient: BETZY SALVADOR Age: 55 Years Sex: Female : 1965 *Operation Myomectomy Hysteroscopic, Uterine Dilatation Curettage, Indication for Surgery Patient with a thickened endometrial stripe on ultrasound and continues to have vaginal bleeding. *Preoperative Diagnosis post menopausal bleeding *Postoperative Diagnosis see surgeon's operative notes *Surgeon(s) Primary Surgeon DAPHNE BEACH MD-OBG (Surgeon/Proceduralist, [facility]) *Procedure Narrative The patient was taken to the operating room where she was prepared and draped in a normal sterile fashion. A single tooth tenaculum was used to grasp the anterior lip of the cervix. The cervix was gently dilated to 6mm using hegar dilators. The hysteroscope was placed in the uterus with the findings as noted above. The myosure device was then used to curette the endometrium per protocol with a normal fluid deficit. The tissue sock sent to pathology. The patient tolerated the procedure well, all counts correct x2. she was taken to recovery room in stable condition. Drains/Packs Used none Anesthesia lma *Estimated Blood Loss minimal *Findings Thickened endometrium *Specimen(s) Endometrial curettings Complications None Date of Service Date/Time of Service SN - Proc - Start Time: 05/19/21 17:19:00 (05/19/21 17:26:26) Electronically signed by Jackie, [facility] Conversion Cement Production Plant Operator Cerner at 11/30/2022 8:49 AM CDT documented in this encounter Plan of Treatment Not on file documented as of this encounter Visit Diagnoses Not on filedocumented in this encounter
--- OUTSIDE RECORDS SUMMARY | 2025-06-20 20:57 | XMS_ITS | Encounter Summary ---
Author Organization [employer] ([place], [place], [place], [place], [place]) Address [address] [place] [address] Care Team Providers Care Pmo Manager Name Role Phone Unavailable Primary Care Provider Unavailabl e Encounter Details Date Type Department Care Team (Late st Contact Info) Description 05/19/2021 Transcribed Document [facility] [place] Family Medicine [facility] [place] [address] ProviderNeena MD [address] [place] [address] Social History Tobacco Use Types Packs/Day [...] Conversion Note - Historical ProviderMD - 05/19/2021 6:20 PM CDT [address] [address] BETZY SALVADOR :1965 Visit Time:05/19/2021 What to do next Instructions From Your Care Team May shower, but no soaking in tub, swimming pool, hot tub, etc... until your follow up appointment. Rest and relax today, No driving for 24 hours due to anesthesia. Vaginal rest (nothing in vagina: no tampons, no douching, no sex) Regular diet as tolerated. Follow-Up Appointments Follow Up with DAPHNE BEACH When Within 1 week Comments has appt praneeth ulloa trolley wire installer Where: [address] [place] [address]- Medications What How Much When Instructions Next Dose acetaminophen-oxyCODONE (Percocet 5/ 325 oral tablet) 1 Tablet(s) Oral Three Times A Day as needed for for pain Pickup at [id number] diclofenac (Voltaren) 75 Milligram(s) Oral Two Times A Day fenofibrate (fenofibrate 145 mg oral tablet) 1 Tablet(s) Oral Every Day lisinopril (lisinopril 10 mg oral tablet) 1 Tablet(s) Oral Every Day oxybutynin (oxybutynin 5 mg oral tablet) 1 Tablet(s) Oral Three Times A Day simvastatin (simvastatin 40 mg oral tablet) 1 Tablet(s) Oral At Bedtime Pharmacy Information [facility] #[id number]: [address] [place], [place] [phone] Take your medications faithfully. Do NOT skip [...] these instructions at home: Medicines ??? Take nzpw-ohf-eksvumb and prescription medicines only as told by [...] and water are not available, use hand insurance claims clerk. ? Change your dressing as told by [...] urine clear or pale yellow. ? Take geuu-ahv-fzwjmtd or prescription medicines. ? Eat foods that [...] provider. Document Revised: 07/15/2018 Document Reviewed: 09/02/2017 [employer] Patient Education ?? 202 [employer]. Hysteroscopy, Care After This sheet gives you [...] taking prescription pain medicines. Medicines ??? Take belj-zcu-oculdlj and prescription medicines only as told by [...] urine clear or pale yellow. ? Take aplk-chi-xiajamd or prescription medicines. ? Eat foods that [...] provider. Document Revised: 07/15/2018 Document Reviewed: 2017 [employer] Patient Education ?? 2020 Elsevier Inc. General Anesthesia, Adult, Care After [...] activities are safe for you. ??? Take bbya-jhx-cepccoo and prescription medicines only as told by [...] provider. Document Revised: 08/05/2018 Document Reviewed: 03/18/2018 [employer] Patient Education ?? 2020 [employer] Inc. Emergency Awareness and Preventative Care STROKE [...] Assistance with quitting is available by contacting 4-251-EQDD-NOW. This is a free resource providing counseling, [...] AM SARS-CoV-2 (COVID19 PCR): Negative Patient Name:BETZY SALVADOR EUSEBIO I have received this information and was given the opportunity to ask questions. Patient/Zinc Miner Blasting Name: Patient/Zinc Miner Blasting Signature: Relationship to Patient: Clinician/Hospital Zinc Miner Blasting Signature: Date: Electronically signed by Interface, [facility] Conversion River Tester Watsonner at 11/30/2022 8:36 AM CDT documented in this encounter Plan of Treatment Not on file documented as of this encounter Visit Diagnoses Not on filedocumented in this encounter
--- OUTSIDE RECORDS SUMMARY | 2025-06-20 20:57 | XMS_ITS | Encounter Summary ---
Author Organization [employer] ([place], [place], [place], [place], [place]) Address [address] [place] [address] Care Team Providers Care Training Administrator Name Role Phone Unavailable Primary Care Provider Unavailabl e Encounter Details Date Type Department Care Team (Late st Contact Info) Description 05/19/2021 Transcribed Document [facility] [place] [address] [place] [address] ProviderNeena MD [address] [place], [place] [id number] Social History Tobacco Use Types Packs/Day Years [...] Conversion Note - Historical ProviderMD - 05/19/2021 5:19 PM CDT [facility] Main OR PACU Summary Primary Physician: DAPHNE BEACH MD-OBG Finalized Date/Time: 05/19/21 18:46:52 Pt. Name: BETZY SHARMA /Sex: 1965 Female Med Rec #: [id number] Physician: DAPHNE BEACH MD-OBG Financial #: [id number] Pt. Type: O Room/Bed: Admit/Disch: 05/19/21 13:15:00 - Institution: [facility] [place] Main OR PACU Case Times Entry 1 In PACU I 05/19/21 17:34:00 Ready for PACU 05/19/21 18:14:00 Discharge Discharge from PACU 05/19/21 18:30:00 I Last Modified By: MILY MICHAEL RN 05/19/21 18:46:50 Finalized By: MILY MICHAEL RN Document Signatures Signed By: MILY MICHAEL RN 05/19/21 18:[address] [facility] Conversion Pipe Assembly Worker Cerner at 11/30/2022 8:32 AM CDT documented in this encounter Plan of Treatment Not on file documented as of this encounter Visit Diagnoses Not on filedocumented in this encounter
--- OUTSIDE RECORDS SUMMARY | 2025-06-20 20:57 | XMS_ITS | Clinical Summary ---
Author Organization [employer] ([place], [place], [place], [place], [place]) Address [address] [place] [address] Care Team Providers Care Dental Service Chief Name Role Phone Unavailable Primary Care Provider Unavailabl e Social History Tobacco Use Types Packs/Day Years Used Date Smoking Tobacco: Never Assessed Comments Unknown Sex and Gender Information Value Date Recorded Sex Assigned at Female 02/10/2022 12:54 PM CDT Legal Sex Female 12:54 PM CDT Gender Identity Female 02/10/2022 12:54 PM CDT Sexual Orientation Not on file Plan of Treatment Not on file
--- OUTSIDE RECORDS SUMMARY | 2025-06-20 20:57 | XMS_ITS | Referral Summary ---
Author Organization [employer] ([place], [place], [place], [place], [place]) Address [address] [place] [address] Care Team Providers Care Pest Control Pilot Name Role Phone Unavailable Primary Care Provider [...]
--- OUTSIDE RECORDS SUMMARY | 2025-06-20 20:57 | XMS_ITS | Encounter Summary ---
Author Organization [employer] ([place], [place], [place], [place], [place]) Address [address] [place] [address] Care Team Providers Care Accounts Supervisor Name Role Phone Unavailable Primary Care Provider Unavailabl e Encounter Details Date Type Department Care Team (Late st Contact Info) Description 05/19/2021 Transcribed Document [facility] [place] Medicine [address] [place] [address] ProviderNeena MD [address], [place] [id number] Social History Tobacco Use Types Packs/Day Years [...] Conversion Note - Historical ProviderMD - 05/19/2021 3:00 PM CDT [facility] Main OR PreOp Summary Primary Physician: DAPHNE BEACH MD-OBG Finalized Date/Time: 05/19/21 16:58:49 Pt. Name: BETZY SHARMA /Sex: 1965 Female Med Rec #: [id number] Physician: DAPHNE BEACH MD-OBG Financial #: [id number] Pt. Type: O Room/Bed: Admit/Disch: 05/19/21 13:15:00 - Institution: [facility] PreOp Case Times Entry 1 In Preop 05/19/21 13:20:00 Ready for Holding n/a Room Patient Ready for 05/19/21 15:30:00 Surgery Patient Out of Preop 05/19/21 16:55:00 Patient Out of n/a Holding Room Last Modified By: HERB MAS RN 05/19/21 16:58:47 [facility] PreOp Case Times Audit 05/19/21 16:58:47 Historical Interpreter: JEFERSONLEDY Modifier: DROIS <+> 1 Patient Out of Preop Finalized By: HERB MAS RN Document Signatures Signed By: HERB MAS RN 05/19/21 16:58 documented in this encounter Plan of Treatment Not on file documented as of this encounter Visit Diagnoses Not on filedocumented in this encounter
--- OUTSIDE RECORDS SUMMARY | 2025-06-20 20:57 | XMS_ITS | Encounter Summary ---
Author Organization [email or web address] ([place], [place], [place], [place], [place]) Address [address] [place] [address] Care Team Providers Care Supervisor Diagnostic Name Role Phone Unavailable Primary Care Provider Unavailabl e Encounter Details Date Type Department Care Team (Late st Contact Info) Description 05/19/2021 Transcribed Document [facility] [place] Medicine [facility] [place] [address] ProviderNeena MD [address], [place] [id number] Social History Tobacco Use Types Packs/Day Years [...] Conversion Note - Historical ProviderMD - 05/19/2021 3:13 PM CDT PAT Adult Entered On: 05/19/2021 15:17 EDT Performed On: 05/19/2021 15:13 EDT by HERB MAS RN Pain Assessment Pain Assessment : Initial assessment Pain Scale Goal : 3 Pain Scale Used : 0-10 Scale HERB MAS RN - 05/19/2021 15:13 EDT Height and Weight, Clinical Dosing Height Source : Stated Height Entry Format : [place] Height, Feet : 5 ft(Converted to: 152 cm, 60 Inch) Height, Inches : 3 Inch(Converted to: 0 ft 3 Inch, 7.62 cm) Clinical Height : 160.02 cm Weight Source : Standing scale Weight Entry Format : [place] Clinical Dosing Weight : 80.45 kg Weight, Pounds : 177 lb Body Surface Area (BSA) : 1.84 m2 Body Mass Index : 31.4 kg/m2 (HI) [place] Body Weight : 52 kg HERB MAS RN - 05/19/2021 15:13 EDT Health Histories Smoking Status : Never (less than 100 in lifetime; none in last 30 days) Smokeless Tobacco Status : Never HERB MAS RN - 05/19/2021 15:13 EDT Social History (As Of: 05/19/2021 15:17:30 EDT) Infectious Disease History Does patient have symptoms of COVID-19? : No Has the Patient Been Tested for COVID-19 in the last 14 days? : Yes, Patient stated results Negative Does the Patient state known exposure to a COVID-19 positive case in the last 14 days? : No Patient Vaccinated for COVID-19 : Fully vaccinated HERB MAS RN - 05/19/2021 15:13 EDT Infectious Disease Risk Screening Grid Cough < 2 wks of unknown origin : NO Cough > 2 weeks : NO Blood in Sputum : NO Fever or self-reported Fever : NO Rash of unknown origin : NO Headache : NO Stiff neck : NO Night Sweats : NO Unexplained Weight Loss : NO Diarrhea (3 episode per day) : NO HERB MAS RN - 05/19/2021 15:13 EDT Physical contact outside [place] in the last 30 days : No Hospitalized in Foreign Country : No Infectious Disease History : Chicken pox/Shingles, Influenza, Mumps INF Disease TB Screening Calc : 0 INF Disease Recent Travel Calc : 0 HERB MAS RN - 05/19/2021 15:13 EDT COVID19 PreProcedure Screening Is this an Emergent or Add on Procedure? : No Date PreProcedure COVID-19 test known? : Yes Date of PreProcedure COVID-19 : 05/15/2021 EDT Has patient been isolated since the test : Yes Exposed to COVID19 symptoms since test? : N/A - PreProcedure, in-person visit HERB MAS RN - 05/19/2021 15:13 EDT Anesthesia/Transfusion History Family History of Anesthesia Reaction : No prior transfusion(s) Transfusion History : Prior anesthesia without reaction Family History of Anesthesia Reaction : None HERB MAS RN - 05/19/2021 15:13 EDT Functional Assessment Functional ADL Evaluation Index EBN Bathing : Independent (2) Dressing : Independent (2) Toileting : Independent (2) Transferring Bed or Chair : Independent (2) Continence : Independent (2) Feeding : Independent (2) HERB MAS RN - 05/19/2021 15:13 EDT ADL Index Score : 12 HERB MAS RN - 05/19/2021 15:13 EDT Advance Directive Patient has Advance Directive *Q : Yes, Advance Directive not with the patient Advance Directive Type : Living will Copy Advance Directive Verified/on Chart : No HERB MAS RN - 05/19/2021 15:13 EDT Spiritual/Cultural Needs Any Spiritual/Cultural Needs or Requests : Yes HERB MAS RN - 05/19/2021 15:13 EDT [place] Suicide Severity Rating Scale (C-SSRS) CSSRS Past Month Wish to be : Unable to obtain CSSRS Past Month Suicidal Thoughts : Unable to obtain CSSRS Lifetime Suicide Behavior : Unable to obtain Suicide Severity Rating Score : -105 Suicide Severity Rating : Reassessment required HERB MAS RN - 05/19/2021 15:13 EDT Psychosocial History Do You Have a History of the Following? : Patient denies history Currently in Unsafe Situation : No HERB MAS RN - 05/19/2021 15:13 EDT Teaching/Learning Assessment Barriers To Learning : None evident Individuals Taught : Patient HERB MAS RN - 05/19/2021 15:13 EDT General Info Arrived From : Home Mode of Arrival on Unit : Ambulatory Legal Guardian : Sibling Want Family/Rep/Phys Notified of Admit : No Emergency Contact #1 : reji Emergency Contact #1 Emergency Contact #1 Relationship : sister Emergency Contact #2 : . Emergency Contact #2 Phone Number : . Emergency Contact #2 Relationship : . Information Obtained From : Patient Primary Language : Luxembourger Communication Barrier : None Respiratory Therapy Instructor Needed : HERB Acevedo RN - 05/19/2021 15:13 EDT Lawrence Scale Lawrence Sensory Perception : No impairment Lawrence Moisture : Occasionally moist Lawrence Activity : Walks frequently Lawrence Mobility : No limitation Lawrence Nutrition : Adequate Lawrence Friction and Shear : No apparent problem Lawrence Score : 21 HERB MAS RN - 05/19/2021 15:13 EDT Sleep Apnea Risk Assmt Hx of Obstructive Sleep Apnea Diagnosis : No Snore Loudly : No Tired, Fatigued, or Sleepy During Day : No Observed Stopping Breathing During Sleep : No Have/Are Being Treated for Hypertension : No BMI Greater Than 35 kg/m2 : No Age over 50 Years Old : Yes Neck Circumference Greater Than 40 cm : No Gender Male : No STOP-BANG Sleep Apnea Risk Level Score : 1 HERB MAS RN - 05/19/2021 15:13 EDT Pain Scale Intensity : 0 HERB MAS RN - 05/19/2021 15:13 EDT Image 4 - Images currently included in the form version of this document have not been included in the text rendition version of the form. documented in this encounter Plan of Treatment Not on file documented as of this encounter Visit Diagnoses Not on filedocumented in this encounter
--- OUTSIDE RECORDS SUMMARY | 2025-06-20 20:57 | XMS_ITS | Encounter Summary ---
Author Organization [employer] ([place], [place], [place], [place], [place]) Address [address] [place] [address] Care Team Providers Care Manager Payer Name Role Phone Unavailable Primary Care Provider Unavailabl e Encounter Details Date Type Department Care Team (Late st Contact Info) Description 05/19/2021 Transcribed Document [facility] [place] [facility] [place] [address] ProviderNeena MD [address], [place] [phone] Social History Tobacco Use Types Packs/Day Years [...] Conversion Note - Historical ProviderMD - 05/19/2021 3:42 PM CDT Spiritual Care Short Form Entered On: 05/20/2021 20:25 EDT Performed On: 05/19/2021 15:42 EDT by Yogi Renee Chaplain-Non Cert General Information, Spiritual Care Spiritual Care Referred by : Patient Reason for Visit : Initial Ethics Consult Received : No Ministry Provided to : Patient Intervention/Comment/Summary Points : PT desirous of prayer prior to surgery. Curriculum Facilitator provided pastoral presence and prayer. Family; daugther, sister, and nephew. Spiritual/Emotional Acuity : Low Spiritual Framework : Somewhat integrated, provides some strength/resource Active in a Alevism/Ary Group : No Hindu Preference : No information on preference Non-Roman Catholic Hindu Ritual Needed : No Curriculum Facilitator Follow-up Needed : No Yogi Renee Chaplain-Non Cert - 05/20/2021 20:23 EDT documented in this encounter Plan of Treatment Not on file documented as of this encounter Visit Diagnoses Not on filedocumented in this encounter
== END 2025-06-19 23:59 | disposition home or self-care (01) ==
LOC: LAB.DROPOF 06-20 20:55
PROVIDERS: PCP Nurse Practitioner Family; Visit Provider Nurse Practitioner Family
DX: E78.5 Hyperlipidemia, unspecified (principal); N28.9 Disorder of kidney and ureter, unspecified; I10 Essential (primary) hypertension
CPT/HCPCS: 80053; 80061; 84443; 85025